=== PATIENT | female | born 1970 | race Caucasian/White ===

== ENCOUNTER 2024-09-26 01:05 | Day surgery (SDC) | payer OTHER, SELFPAY ==
[2024-09-09 13:35] VITALS: BMI 30.4
--- OUTSIDE RECORDS SUMMARY | 2024-09-26 01:08 | XMS_ITS | Clinical Summary ---
Author Organization [facility] [employer] Address [address] [place] [address] Care Team Providers Care Head Setter Name Role Phone Liya Burdick Primary Care Provider [phone] Source Comments [facility],non-owned Affiliates and Associated Physician Practices is amultiple site organization consisting of ambulatory clinics and hospital sitesin [place], [place], [place] and [place]. This disclosure is being madepursuant to the Care Everywhere program and may not contain all information available regarding this patient. Last updated 18.[facility] [employer] Allergies Active Allergy Reactions Criticality Noted Date Comments Meloxicam Other Low 03/14/2017 Elevated liver functions. Medications * Be aware that medications may not be up to date on this document. Alwaysverify current medications with the patient. Medication Sig Dispensed Refills Start Date End Date Status buPROPion SR 12hr (WELLBUTRIN-SR) 150 MG tablet 2 times daily 02/26/2018 Active Docusate Sodium (COLACE PO) Take 2 capsules by mouth 2 times daily Active nebivolol (Bystolic) 2.5 MG tablet Take 2 (two) tablets by mouth once daily Active loratadine (Claritin) 10 MG tablet Take 1 (one) tablet by mouth once daily Active Cyanocobalamin (VITAMIN B 12 PO) Take 1,000 mcg by mouth once daily Active [place]-3 Fatty Acids (OMEGA 3 PO) Take by mouth once daily Active Multiple Vitamins-Minerals (MULTIVITAMIN ADULT PO) Take by mouth once daily Active Calcium Carbonate-Vitamin D (CALCIUM-VITAMIN D) 600-125 MG-UNIT Take by mouth 2 times daily Active TURMERIC PO Take 1,000 mg by mouth 2 times daily Active ALPRAZolam (XANAX) 0.25 MG tablet Take 2 (two) tablets by mouth 3 times daily as needed for Anxiety Active ondansetron (ZOFRAN) 4 MG tablet Take 1 (one) tablet by mouth every 6 hours as needed for Nausea/Vomiting Active traMADol (ULTRAM) 50 MG tablet Take 1 (one) tablet by mouth every 6 hours as needed for Pain Active clonazePAM (KlonoPIN) 0.5 MG tablet Take 1 (one) tablet by mouth 2 times daily Active Melatonin-Pyridoxine (MELATIN PO) Take by mouth nightly as needed Active rosuvastatin (Crestor) 5 MG tablet Take 1 (one) tablet by mouth once daily Active diphenhydrAMINE (Benadryl) 25 MG capsule Take 1 (one) capsule by mouth nightly as needed Active polyethylene glycol 3350 (Miralax) 17 GM/SCOOP powder Take 17 (seventeen) g by mouth 2 times daily Mixes bene fiber Active Active Problems Problem Noted Date Diagnosed Date NAFLD (nonalcoholic fatty liver disease) 019 Overview (08/30/2022): 08/26/21 Fibroscan CAP 281, LSM 5.4 kPa 08/30/22 Fibroscan CAP 320, LSM 7.4 kPa Elevated alkaline phosphatase level 04/05/2018 Resolved Problems Problem Noted Date Diagnosed Date Resolved Date Abnormal levels of other serum enzymes 02/27/2014 04/05/2018 Encounters Date Type Department Care Team Description 07/17/2024 Travel from Last 3 Months Immunizations Name Administration Dates Next Due Covid Moderna primary monova lent 12+ yr 0.5mL 06/29/2021,12/04/2020,11/06/2020 Social History Tobacco Use Types Packs/Day Years Used Date Smoking Tobacco: Never Smokeless Tobacco: Never Tobacco Cessation:Counseling Given: Not Answered Alcohol Use Standard Drinks/Week Comments No 0 (1 standard drink = 0.6 oz pur e alcohol) Sex and Gender Information Value Date Recorded Sex Assigned at Not on file Gender Identity Not on file Sexual Orientation Not on file Last Filed Vital Signs Vital Sign Reading Time Taken Comments Blood Pressure 152/79 08/22/2023 8:55 AM [facility] Pulse 70 08/22/2023 8:55 AM [facility] Temperature 36.5 C (97.7 F) 08/22/2023 8:55 AM [facility] Respiratory Rate 16 08/22/2023 8:55 AM [facility] Oxygen Saturation 100% 08/22/2023 8:55 AM [facility] Inhaled Oxygen Concentration - - Weight 88.2 kg (194 lb 6.4 oz) 08/22/2023 8:55 A M [facility] [employer] [facility] Height 170.2 cm (5' 7 ) 08/22/2023 8:55 AM [facility] Body Mass Index 30.45 08/22/2023 8:55 AM [facility] Plan of Treatment Upcoming Encounters Date Type Department Care Team (Late st Contact Info) Description 11/26/2024 2:00 PM CDT Procedure visit [facility] [address] [place] [phone] 11/26/2024 2:30 PM CDT Office Visit [facility] [address] [place] [phone] Kevin Schuster MD [address] [place] [address] [place] [address] Health Maintenance Due Date Last Done Comments COLOGUARD (AGES 45-75) - COLON CA SCREENING 1968 COLON MONITORING 1968 COLONOSCOPY - COLON CA SCREENING 1968 CT COLONOGRAPHY - COLON CA SCREENING 1968 Colorectal Cancer Screening 1968 FIT - COLON CA SCREENING 1968 FLEX SIG - COLON CA SCREENING 1968 PAP SMEAR 1968 HIV SCREENING 1983 DTAP/TDAP/TD VACCINES (1 - Tdap) 1987 HEPATITIS B VACCINE (1 of 3 - 19+ 3-dose series) 1987 PNEUMOCOCCAL VACCINE 50+ (1 of 1 - PCV) 2018 ZOSTER VACCINE (1 of 2) 2018 COVID-19 VACCINE (4 - season) 2024 06/29/2021, 12/04/2020, 11/06/2020 INFLUENZA VACCINE (#1) 2024 06/29/2021 DEPRESSION SCREENING 08/14/2024 MAMMOGRAM 04/05/2025 04/05/2023 SCREENING FOR DIABETES 08/22/2026 , 08/30/2022, 08/26/2021, Additional history exists HEPATITIS C SCREENING Completed 02/27/2014 HIB VACCINE Aged Out No longer eligi ble based on patient's age to complete this topic HPV VACCINE Aged Out No longer eligi ble based on patient's age to complete this topic MENINGOCOCCAL (Group B) VACCINE Aged Out No longer eligible based on patient's age to complete this topic MENINGOCOCCAL VACCINE Aged Out No alfredo dede eligible based on patient's age to complete this topic Goals Goal Patient Goal Type Associated Problems Recent Progress Patient-Stated? Author Medication Management General On track( 023 10:10 AM [facility] [employer] [facility]) Pao Machado, RN Note: Expected end date: Ongoing Interventions: Take all medications as prescribed Let your doctor know right away about any changes in your medications Make sure to request a refill of your medication at least one week prior to your last dose Procedures Procedure Name Priority Date/Time Associated Diagnosis Comments COMPREHENSIVE METABOLIC PANEL Routine 08/22/2023 8:51 AM [facility] NAFLD (nonalcoholic fatty liver disease) Primary biliary cholangitis (HCC) HEPATITIS C ANTIBODY Timed 02/27/2014 1:14 PM CDT from Last 3 Months or Most Recently Relevant to Health Maintenance Results * COMPREHENSIVE METABOLIC PANEL (08/22/2023 8:51 AM [facility]) BUN 14 7 - 26 mg/dL 08/22/2023 9:42 AM [facility] Creatinine 0.76 0.56 - 0.96 mg/dL 08/22/2023 9:42 AM [facility] Sodium 140 136 - 145 mmol/L 08/22/2023 9:42 AM [facility] Potassium 4.1 3.5 - 4.5 mmol/L 08/22/2023 9:42 AM [facility] Chloride 102 98 - 107 mmol/L 08/22/2023 9:42 AM [facility] CO2 27 22 - 29 mmol/L 08/22/2023 9:42 AM [facility] Glucose 82 70 - 115 mg/dL 08/22/2023 9:42 AM [facility] Calcium 9.7 8.4 - 10.2 mg/dL 08/22/2023 9:42 AM [facility] Protein Total 6.9 6.0 - 8.3 g/dL 08/22/2023 9:42 AM [facility] Albumin 4.2 3.4 - 5.0 g/dL 08/22/2023 9:42 AM [facility] Bilirubin Total 0.8 0.2 - 1.2 mg/dL 08/22/2023 9:42 AM [facility] Alkaline Phosphatase 102 40 - 150 U/L 08/22/2023 9:42 AM [facility] ALT 15 5 - 55 U/L 08/22/2023 9:42 AM [facility] AST 16 5 - 34 U/L 08/22/2023 9:42 AM [facility] Anion Gap 11 6 - 16 08/22/2023 9:42 AM [facility] BUN/Creatinine Ratio 18 7 - 23 08/22/2023 9:42 AM [facility] Osmolality Calculated 290 275 - 295 mOsm/kg 08/22/2023 9:42 AM [facility] Albumin/Globulin Ratio 1.6 1.1 - 2.3 08/22/2023 9:42 AM [facility] eGFR by CKD-EPI >90 >=90 mL/min/1.7 3 m2 08/22/2023 9:42 AM [facility] Blood BLOOD SPECIMEN / Unknown Lab Venipuncture / Unknown 08/22/2023 8:51 AM [facility] 08/22/2023 9:05 AM [facility] Kevin Schuster MD LAB - CHEMISTR Y ORDERABLES [facility] [address] [place] [phone], [facility] [phone] * HEPATITIS C ANTIBODY (02/27/2014 1:14 PM CDT) Hepatitis C Antibody Non-react jin Non-reac tive [facility] Comment: Hepatitis C Antibody screen indicates no serologic evidence of past or current infection with Hepatitis C Virus. Patients with unexplained liver disease who are immunocompromised or suspected of having acute Hepatitis C infection may benefit from Nucleic Acid Test (VIRA) for Hepatitis C Viral RNA to confirm Hepatitis C status. Blood specimen (specimen) BLOOD SPECIMEN / Unknown 02/27/2014 1:14 PM CDT 02/27/2014 2:17 PM CDT Lauri Mcknight MD LAB - CHEMISTRY GARY DENNIS [facility] [address] [place] [address], [facility] [phone] from Last 3 Months or Most Recently Relevant to Health Maintenance Care Teams Head Setter Relationship Specialty Start Date End Date Liya Burdick PA [address] [place] [phone] PCP - General Physician Planning Feeder 08/22/23
--- OUTSIDE RECORDS SUMMARY | 2024-09-26 01:09 | XMS_ITS | Patient Health Summary ---
Author Organization [facility] Address [address] [place] [address] Care Team Providers Care Scoring Machine Operator Name Role Phone Liya Burdick Primary Care Provider [phone] Note from [facility],non-owned Affiliates and Associated Physician Practices is amultiple site organization consisting of ambulatory clinics and hospital sitesin [place], [place], [place] and [place]. This disclosure is being madepursuant to the Care Everywhere program and may not contain all information available regarding this patient. Last updated 18.[facility] Allergies * Meloxicam(Other) -Low Criticality Medications * Be aware that medications may not be up to date on this document. Alwaysverify current medications with the patient. * buPROPion SR 12hr (WELLBUTRIN-SR) 150 MG tablet(Started 02/26/2018) 2 times daily * Docusate Sodium (COLACE PO) Take 2 capsules by mouth 2 times daily * nebivolol (Bystolic) 2.5 MG tablet Take 2 (two) tablets by mouth once daily * loratadine (Claritin) 10 MG tablet Take 1 (one) tablet by mouth once daily * Cyanocobalamin (VITAMIN B 12 PO) Take 1,000 mcg by mouth once daily * Patterson-3 Fatty Acids (OMEGA 3 PO) Take by mouth once daily * Multiple Vitamins-Minerals (MULTIVITAMIN ADULT PO) Take by mouth once daily * Calcium Carbonate-Vitamin D (CALCIUM-VITAMIN D) 600-125 MG-UNIT Take by mouth 2 times daily * TURMERIC PO Take 1,000 mg by mouth 2 times daily * ALPRAZolam (XANAX) 0.25 MG tablet Take 2 (two) tablets by mouth 3 times daily as needed for Anxiety * ondansetron (ZOFRAN) 4 MG tablet Take 1 (one) tablet by mouth every 6 hours as needed for Nausea/Vomiting * traMADol (ULTRAM) 50 MG tablet Take 1 (one) tablet by mouth every 6 hours as needed for Pain * clonazePAM (KlonoPIN) 0.5 MG tablet Take 1 (one) tablet by mouth 2 times daily * Melatonin-Pyridoxine (MELATIN PO) Take by mouth nightly as needed * rosuvastatin (Crestor) 5 MG tablet Take 1 (one) tablet by mouth once daily * diphenhydrAMINE (Benadryl) 25 MG capsule Take 1 (one) capsule by mouth nightly as needed * polyethylene glycol 3350 (Miralax) 17 GM/SCOOP powder Take 17 (seventeen) g by mouth 2 times daily Mixes bene fiber Active Problems Problem Noted Date Diagnosed Date NAFLD (nonalcoholic fatty liver disease) 019 Elevated alkaline phosphatase level 04/05/2018 Resolved Problems Problem Noted Date Diagnosed Date Resolved Date Abnormal levels of other serum enzymes 02/27/2014 04/05/2018 Immunizations * Covid Moderna primary monovalent 12+ yr 0.5mL(Given 06/29/2021, 12/04/2020, 11/06/2020) Social History Tobacco Use Types Packs/Day Years [...] Comments Blood Pressure 152/79 08/22/2023 8:55 AM H[employer]ICULTURE WORKER Pulse 70 08/22/2023 8:55 AM H[employer]ICULTURE WORKER Temperature 36.5 C (97.7 F) 08/22/2023 8:55 AM H[employer]ICULTURE WORKER Respiratory Rate 16 08/22/2023 8:55 AM H[employer]ICULTURE WORKER Oxygen Saturation 100% 08/22/2023 8:55 AM H[employer]ICULTURE WORKER Inhaled Oxygen Concentration - - Weight 88.2 kg (194 lb 6.4 oz) 08/22/2023 8:55 A M [employer]ICULTURE WORKER Height 170.2 cm (5' 7 ) 08/22/2023 8:55 AM H[employer]ICULTURE WORKER Body Mass Index 30.45 08/22/2023 8:55 AM HORTICULTURE WORKER Procedures * COMPREHENSIVE METABOLIC PANEL(Performed 08/22/2023) Performed for NAFLD (nonalcoholic fatty liver disease), Primary biliary cholangitis (HCC) * CBC W AUTO DIFFERENTIAL(Performed 08/22/2023) Performed for NAFLD (nonalcoholic fatty liver disease), Primary biliary cholangitis (HCC) * KY LIVER ELASTOGRAPHY(Performed 08/30/2022) Performed for NAFLD (nonalcoholic fatty liver disease) * COMPREHENSIVE METABOLIC PANEL(Performed 08/30/2022) Performed for NAFLD (nonalcoholic fatty liver disease), Primary biliary cholangitis (HCC) * CBC W AUTO DIFFERENTIAL(Performed 08/30/2022) Performed for NAFLD (nonalcoholic fatty liver disease), Primary biliary cholangitis (HCC) * KY LIVER ELASTOGRAPHY(Performed 08/26/2021) Performed for NAFLD (nonalcoholic fatty liver disease) * PT-INR [facility](Performed 08/26/2021) Performed for NAFLD (nonalcoholic fatty liver disease) * CBC W AUTO DIFFERENTIAL(Performed 08/26/2021) Performed for NAFLD (nonalcoholic fatty liver disease) * COMPREHENSIVE METABOLIC PANEL(Performed 08/26/2021) Performed for NAFLD (nonalcoholic fatty liver disease) * PT-INR [facility](Performed 08/18/2020) Performed for Liver regeneration * COMPREHENSIVE METABOLIC PANEL(Performed 08/18/2020) Performed for Cholestatic liver disease (HCC) * CBC W AUTO DIFFERENTIAL(Performed 08/18/2020) Performed for Cholestatic liver disease (HCC) * CBC W AUTO DIFFERENTIAL(Performed 03/18/2020) * COMPREHENSIVE METABOLIC PANEL(Performed 03/18/2020) * CBC W AUTO DIFFERENTIAL(Performed 08/20/2019) * COMPREHENSIVE METABOLIC PANEL(Performed 08/20/2019) * CBC W AUTO DIFFERENTIAL(Performed 03/19/2019) * COMPREHENSIVE METABOLIC PANEL(Performed 03/19/2019) * TSH (EXTERNAL RESULT ENTRY)(Performed 03/19/2019) * LIPID PROFILE (EXTERAL RESULT ENTRY)(Performed 03/19/2019) * CBC W AUTO DIFFERENTIAL(Performed 09/14/2018) * COMPREHENSIVE METABOLIC PANEL(Performed 09/14/2018) * CBC W AUTO DIFFERENTIAL(Performed 03/26/2018) * COMPREHENSIVE METABOLIC PANEL(Performed 03/26/2018) * CBC W AUTO DIFFERENTIAL(Performed 08/02/2017) * COMPREHENSIVE METABOLIC PANEL(Performed 08/02/2017) * COMPREHENSIVE METABOLIC PANEL(Performed 01/17/2017) * CBC W AUTO DIFFERENTIAL(Performed 01/17/2017) * COMPREHENSIVE METABOLIC PANEL(Performed 08/12/2016) * CBC W AUTO DIFFERENTIAL(Performed 08/12/2016) * COMPREHENSIVE METABOLIC PANEL(Performed 02/19/2016) * CBC W AUTO DIFFERENTIAL(Performed 02/19/2016) * CBC W AUTO DIFFERENTIAL(Performed 07/20/2015) * COMPREHENSIVE METABOLIC PANEL(Performed 07/20/2015) * PATHOLOGY TISSUE(Performed 05/06/2014) * MRI ABDOMEN W MRCP WWO CONT W3D(Performed 03/07/2014) * CREATININE BLOOD - POCT (IP) [facility](Performed 03/07/2014) * NEUTROPHIL CYTOPLASMIC ANTIBODY(Performed 02/27/2014) * SMOOTH MUSCLE ANTIBODY(Performed 02/27/2014) * RUPERT W/REFLEX IFA PATTERN(Performed 02/27/2014) * IGG SUBCLASS 4(Performed 02/27/2014) * HEPATITIS A ANTIBODY(Performed 02/27/2014) * HEPATITIS B SURFACE ANTIBODY(Performed 02/27/2014) * HEPATITIS B CORE ANTIBODY TOTAL(Performed 02/27/2014) * PT-INR [facility](Performed 02/27/2014) * COMPREHENSIVE METABOLIC PANEL(Performed 02/27/2014) * GGT(Performed 02/27/2014) * CBC W AUTO DIFFERENTIAL(Performed 02/27/2014) * CBC W AUTO DIFFERENTIAL(Performed 02/27/2014) * [id number] BLOOD PHENOTYPING PANEL(Performed 02/27/2014) * MICROSOMAL ANTIBODY LIVER/KIDNEY(Performed 02/27/2014) * MITOCHONDRIAL ANTIBODY SCREEN(Performed 02/27/2014) * SMOOTH MUSCLE ANTIBODY(Performed 02/27/2014) * FERRITIN(Performed 02/27/2014) * HEPATITIS C ANTIBODY(Performed 02/27/2014) * HEPATITIS B SURFACE ANTIGEN W RFLX CONFIRMATION(Performed 02/27/2014) * CERULOPLASMIN(Performed 02/27/2014) * [id number]-[id number] BLOOD(Performed 02/27/2014) Results * (ABNORMAL) CBC WITH DIFFERENTIAL (08/22/2023 8:51 AM [facility]) Only the most recent of16 resultswithin the time period is included. WBC 5.2 4.0 - 10.7 x10E9/L 08/22/2023 9:23 AM [facility] RBC Count 3.77(L) 3.90 - 5.20 x10E12/L 08/22/2023 9:23 AM [facility] Hemoglobin 12.4 11.9 - 15.8 g/dL 08/22/2023 9:23 AM [facility] Hematocrit 35.9 34.8 - 46.1 % 08/22/2023 9:23 AM [facility] MCV 95.2 80.0 - 98.0 fL 08/22/2023 9:23 AM [facility] MCH 32.9 26.7 - 33.6 pg 08/22/2023 9:23 AM [facility] MCHC 34.5 31.7 - 36.3 g/dL 08/22/2023 9:23 AM [facility] RDW-CV 11.8 11.3 - 14.8 % 08/22/2023 9:23 AM [facility] Platelet Count 319 150 - 420 x10E9/L 08/22/2023 9:23 AM [facility] MPV 8.9 7.8 - 11.4 fL 08/22/2023 9:23 AM [facility] Neutrophil % 46.7 41.0 - 74.0 % 08/22/2023 9:23 AM [facility] Lymphocyte % 40.7 17.0 - 47.0 % 08/22/2023 9:23 AM [facility] Monocyte % 9.3 3.0 - 11.0 % 08/22/2023 9:23 AM [facility] Eosinophil % 2.3 0.0 - 7.0 % 08/22/2023 9:23 AM [facility] Basophil % 0.8 0.0 - 1.6 % 08/22/2023 9:23 AM [facility] Immature Granulocytes % 0.2 0.0 - 1.0 % 08/22/2023 9:23 AM [facility] Neutrophil Absolute 2.42 1.60 - 7.50 x10E9/L 08/22/2023 9:23 AM [facility] Lymphocyte Absolute 2.11 1.00 - 4.40 x10E9/L 08/22/2023 9:23 AM [facility] Monocyte Absolute 0.48 0.15 - 1.00 x10E9/L 08/22/2023 9:23 AM [facility] Eosinophil Absolute 0.12 0.00 - 0.60 x10E9/L 08/22/2023 9:23 AM [facility] Basophil Absolute 0.04 0.00 - 0.13 x10E9/L 08/22/2023 9:23 AM [facility] Blood BLOOD SPECIMEN / Unknown Lab Venipuncture / Unknown 08/22/2023 8:51 AM [facility] 08/22/2023 9:05 AM [facility] Kevin Schuster MD LAB - HEMATOLO GY ORDERABLES Performing Organization Address City/State/[facility] Co de Phone Number [address] [address], [facility] [phone] * COMPREHENSIVE METABOLIC PANEL (08/22/2023 8:51 AM [facility]) Only the most recent of15 resultswithin the time period is included. BUN 14 7 - 26 mg/dL 08/22/2023 9:42 AM [facility] Creatinine 0.76 0.56 - 0.96 mg/dL 08/22/2023 9:42 AM [facility] Sodium 140 136 - 145 mmol/L 08/22/2023 9:42 AM [facility] Potassium 4.1 3.5 - 4.5 mmol/L 08/22/2023 9:42 AM [facility] Chloride 102 98 - 107 mmol/L 08/22/2023 9:42 AM [facility] CO2 27 22 - 29 mmol/L 08/22/2023 9:42 AM [facility] Glucose 82 70 - 115 mg/dL 08/22/2023 9:42 AM [facility] Calcium 9.7 8.4 - 10.2 mg/dL 08/22/2023 9:42 AM [facility] Protein Total 6.9 6.0 - 8.3 g/dL 08/22/2023 9:42 AM [facility] Albumin 4.2 3.4 - 5.0 g/dL 08/22/2023 9:42 AM [facility] Bilirubin Total 0.8 0.2 - 1.2 mg/dL 08/22/2023 9:42 AM [facility] Alkaline Phosphatase 102 40 - 150 U/L 08/22/2023 9:42 AM [facility] ALT 15 5 - 55 U/L 08/22/2023 9:42 AM [facility] AST 16 5 - 34 U/L 08/22/2023 9:42 AM [facility] Anion Gap 11 6 - 16 08/22/2023 9:42 AM [facility] BUN/Creatinine Ratio 18 7 - 23 08/22/2023 9:42 AM [facility] Osmolality Calculated 290 275 - 295 mOsm/kg 08/22/2023 9:42 AM [facility] Albumin/Globulin Ratio 1.6 1.1 - 2.3 08/22/2023 9:42 AM [facility] eGFR by CKD-EPI >90 >=90 mL/min/1.7 3 m2 08/22/2023 9:42 AM [facility] Blood BLOOD SPECIMEN / Unknown Lab Venipuncture / Unknown 08/22/2023 8:51 AM [facility] 08/22/2023 9:05 AM [facility] Kevin Schuster MD LAB - CHEMISTR Y ORDERABLES [facility] [address] [place] [id number] [phone] * [place] LIVER ELASTOGRAPHY (08/30/2022 9:00 AM H[employer]ICULTURE WORKER) Narrative Keyshawn White MD - 08/30/2022 9:00 AM H[employer]ICULTURE WORKER Keyshawn White MD 08/30/2022 11:38 AM Diagnosis: NAFLD (nonalcoholic fatty liver disease) RN verified patient not , no implanted devices and NPO for prior 3 hours. Date of Exam: 08/30/2022 Liver Stiffness: (LSM, kPa) median: 7.4 IQR (interquartile range): 1.1 IQR/Median% (ideally < 30%): 15% CAP (controlled attenuation parameter): 320 Technical Difficulty: None Ordering Provider: Dr. Schuster Phone Fax Fibroscan interpretation: I have personally reviewed the Fibroscan report and associated tracings. The calculated Liver Stiffness Measurement (LSM, kPa) indicates that: The probability of advanced liver fibrosis is: low to moderate. The loss of ultrasound signal, (controlled attenuation parameter, CAP [dB/m]), indicates that the probability of hepatic steatosis is: high. Keyshawn White MD The following criteria are used to indicate the probability of advanced (stage 3-4) fibrosis: < 7.0 kPa: low 7.0-8.9 kPa: low to moderate 9.0-14.9 kPa: moderate 15-20 kPa: high > 20 kPa: very high Liver stiffness > 20 kPa is also associated with a high probability of complications of portal hypertension including varices and ascites. Liver stiffness > 50 kPa is associated with a high risk of variceal bleeding. These interpretations are based on the following published data: Helga PJ, Francisca M, Dalia M, et al. Accuracy of FibroScan controlled attenuation parameter and liver stiffness measurement in assessing steatosis and fibrosis in patients with nonalcoholic fatty liver disease. Gastroenterology 2019;156:9299-6969. Nisreen MS, Tanvir R, Van Ria ML, et al. Vibration-controlled transient elastography to assess fibrosis and steatosis in patients with nonalcoholic fatty liver disease. Clin Gastroenterol Hepatol 2019;17:156-163. Note: 1. Fibroscan cannot reliably identify earlier stages of fibrosis (ie distinguish F0 from F1 and F2) and thus a histologic stage cannot be predicted from the Fibroscan reading. 2. Assessing the likelihood of advanced fibrosis in patients with indeterminate liver stiffness measurement (LSM) by Fibroscan (e.g., 8-15 kPa) can be improved by also calculating the FIB4 score (Rupali et al. Hepatology Communications 2019;3:1729-4329) or NAFLD Fibrosis score (Zarate et al. Clinical Gastroenterology and Hepatology 2019;17:1070-3973. from routine clinical data. 3. Liver stiffness can be increased by factors other than fibrosis including passive congestion, infiltrative processes, active alcoholism, biliary obstruction and marked inflammation. The interpretation of the Fibroscan result provided above may not have taken such clinical factors into account. Disease etiology also influences Fibroscan cutoff values for fibrosis stages and the following cutoffs have been proposed (Andrew et al, Clin Gastro Hepatol 2015; 13:27-36): Cutoffs for Stage 3 and Stage 4 fibrosis respectively: Hepatitis B: >9 and >11.7 kPa Hepatitis C: >9.5 and >12.5 kPa HCV-HIV: >11 and >14 kPa Cholestatic liver diseases: >10 and >17.9 kPa NAFLD/ALLEN: >10 and >14 kPa CAP estimates of steatosis: normal <200 dB/m mild 200 to 250 dB/m moderate 250-290 dB/m substantial > 290 dB/m (Note that Fibroscan is not a quantitative measure of liver fat.) These criteria are estimates and may change as additional supporting data becomes available. [email or web address] Kevin Schuster MD PROCEDURE/LISA R SURGICAL ORDERABLES * [place] LIVER ELASTOGRAPHY (08/26/2021 9:44 AM H[employer]ICULTURE WORKER) Narrative Keyshawn White MD - 08/26/2021 9:44 AM H[employer]ICULTURE WORKER Keyshawn White MD 08/26/2021 3:37 PM Diagnosis: NAFLD RN verified patient not , no implanted devices and NPO for prior 3 hours. Procedure explained and consent signed. Date of Exam: 08/26/2021 Liver Stiffness: (LSM, kPa) median: 5.4 IQR (interquartile range): 1.3 IQR/Median% (ideally < 30%): 24 CAP (controlled attenuation parameter): 281 Technical Difficulty: None Ordering Provider: Kevin Schuster MD Phone Fax Fibroscan interpretation: I have personally reviewed the Fibroscan report and associated tracings. The calculated Liver Stiffness Measurement (LSM, kPa) indicates that: The probability of advanced liver fibrosis is: low. The loss of ultrasound signal, (controlled attenuation parameter, CAP [dB/m]), indicates that the probability of hepatic steatosis is: moderate. Keyshawn White MD The following criteria are used to indicate the probability of advanced (stage 3-4) fibrosis: < 7.0 kPa: low 7.0-8.9 kPa: low to moderate 9.0-14.9 kPa: moderate 15-20 kPa: high > 20 kPa: very high Liver stiffness > 20 kPa is also associated with a high probability of complications of portal hypertension including varices and ascites. Liver stiffness > 50 kPa is associated with a high risk of variceal bleeding. These interpretations are based on the following published data: Helga PJ, Francisca M, Dalia M, et al. Accuracy of FibroScan controlled attenuation parameter and liver stiffness measurement in assessing steatosis and fibrosis in patients with nonalcoholic fatty liver disease. Gastroenterology 2019;156:2048-0605. Nisreen MS, Tanvir R, Van Natta ML, et al. Vibration-controlled transient elastography to assess fibrosis and steatosis in patients with nonalcoholic fatty liver disease. Clin Gastroenterol Hepatol 2019;17:156-163. Note: 1. Fibroscan cannot reliably identify earlier stages of fibrosis (ie distinguish F0 from F1 and F2) and thus a histologic stage cannot be predicted from the Fibroscan reading. 2. Assessing the likelihood of advanced fibrosis in patients with indeterminate liver stiffness measurement (LSM) by Fibroscan (e.g., 8-15 kPa) can be improved by also calculating the FIB4 score (Smithuke et al. Hepatology Communications 2019;3:2573-0511) or NAFLD Fibrosis score (Zarate et al. Clinical Gastroenterology and Hepatology 2019;17:0162-2681. from routine clinical data. 3. Liver stiffness can be increased by factors other than fibrosis including passive congestion, infiltrative processes, active alcoholism, biliary obstruction and marked inflammation. The interpretation of the Fibroscan result provided above may not have taken such clinical factors into account. Disease etiology also influences Fibroscan cutoff values for fibrosis stages and the following cutoffs have been proposed (Adnrew et al, Clin Gastro Hepatol 2015; 13:27-36): Cutoffs for Stage 3 and Stage 4 fibrosis respectively: Hepatitis B: >9 and >11.7 kPa Hepatitis C: >9.5 and >12.5 kPa HCV-HIV: >11 and >14 kPa Cholestatic liver diseases: >10 and >17.9 kPa NAFLD/ALLEN: >10 and >14 kPa CAP estimates of steatosis: normal <200 dB/m mild 200 to 250 dB/m moderate 250-290 dB/m substantial > 290 dB/m (Note that Fibroscan is not a quantitative measure of liver fat.) These criteria are estimates and may change as additional supporting data becomes available. [email or web address] Kevin Schuster MD PROCEDURE/LISA R SURGICAL ORDERABLES * PT-INR [facility] (08/26/2021 9:13 AM HORTICULTURE WORKER) Only the most recent of3 resultswithin the time period is included. PT 12.5 12.1 - 14.8 Seconds 08/26/2021 9:48 AM HORTICULTURE WORKER [facility] INR 1.0 See Comment 08/26/2021 9:48 AM HORTICULTURE WORKER [facility] Comment:The suggested therap eutic range for standard coumadin (warfarin) therapy is an INR of 2.0-3.0. For high-risk patients (Mechanical Mitral Valve Prosthesis, etc.), the suggested prophylactic therapeutic range is an INR of 2.5-3.5. Blood BLOOD SPECIMEN / Unknown Lab Venipuncture / Unknown 08/26/2021 9:13 AM H[employer]ICULTURE WORKER 08/26/2021 9:32 AM H[employer]ICULTURE WORKER Kevin Schuster MD LAB - COAGULAT ION ORDERABLES [facility] [address] [place] [address], [facility] [phone] * (ABNORMAL) LIPID PROFILE (EXTERAL RESULT ENTRY) (03/19/2019) Cholesterol (EXTERNAL RESULT) 175 0 - 200 mg/dL Triglycerides (EXTERNAL RESULT) 85 0 - 150 mg/dL HDL (EXTERNAL RESULT) 56 >50 mg/dL LDL (EXTERNAL RESULT) 101(A) 0 - 100 mg/dL VLDL (EXTERNAL RESULT) Chol HDL Ratio (External Result) 3.1 0.0 - 5.0 Blood BLOOD SPECIMEN / Unknown 03/19/2019 Historical Provider LAB - CHEMISTRY O RDERABLES * TSH (EXTERNAL RESULT ENTRY) (03/19/2019) Pathologist [facility] TSH (EXTERNAL RESULT) 1.46 0.40 - 4.50 uIU/mL Blood BLOOD SPECIMEN / Unknown 03/19/2019 Historical Provider LAB - CHEMISTRY O RDMADALYN * PATHOLOGY TISSUE (05/06/2014 7:20 AM CDT) Pathologist [facility] Surgical Pathology Tissue CLINICAL HISTORY: The patient is a 43 year old female with elevated liver enzymes. Per Epic, LFT (03/26/14): AP 262, ALT 127, AST 125, normal Tbili. Normal MRCP. FINAL DIAGNOSIS: LIVER, BIOPSY: - MILD STEATOSIS WITH MINIMAL LOBULAR INFLAMMATION - FIBROSIS: STAGE 1 COMMENT: Increased alkaline phosphatase and normal MRCP are noted. There is no significant ductopenia, injury or cholestasis identified in this biopsy. No significant hepatitis or cholangitis is identified. An interlobular portal tract showing periductal fibrosis could be seen in early biliary process, obstruction, or non-specific conditions. Correlation with clinical information and imaging findings is recommended. GROSS DESCRIPTION: The specimen is received in formalin, labeled Citlaly Crenshaw and liver biopsy . It consists of a 0.1 cm in external diameter cylindrical portion of pale brown soft tissue which is 1.5 cm in length. The specimen is strained into a mesh bag, stained with hematoxylin, and submitted in toto in cassette A1. EW for JL/ls MICROSCOPIC DESCRIPTION: Size of biopsy: Adequate Number of portal tracts: >10 Fragmentation: No Fibrosis: Stage 1 with focal portal and periportal fibrosis (Trichrome A1, Reticulin A1) Fibrous septa: Not identified Septa with curved contours: Not identified Large droplet steatosis (% of hepatocytes): 6 Ballooning of hepatocytes: Not identified Cassandra bodies: Not identified Portal inflammation: Not identified Interface activity: Not identified Lobular necroinflammation: Minimal, 1 focus/20x field, very focal Ducts: Present in normal number, one interlobular portal tract showing periductal fibrosis Duct injury: Not identified Ductular reaction: Present, minimal Cholestasis: Not identified Iron stain: Negative (Iron stain A1) Ground glass cells with routine stains: Not identified PASD for [id number] droplets: Not identified (PASD stain A1) JL The performance characteristics of all immunohistochemical and indirect immunofluorescence stains (if any) cited in this report were determined by the Histopathology Laboratory of [facility]. Some of these tests were developed by our own laboratory and have not been cleared or approved by the US Food and Drug Administration. The FDA does not require this test to go through premarket FDA review. These tests are used for clinical purposes. They should not be regarded as investigational or for research. This laboratory is certified under the Clinical Laboratory Improvement Amendments (CLIA) as qualified to perform high complexity clinical laboratory testing. This case has been personally reviewed and interpreted by the attending (teaching) pathologist. Final Diagnosis performed by Matthew Fermin MD. Electronically signed 05/08/2014 [facility] ([facility] Other (qualifier value) 05/06/2014 7:20 AM CDT 05/06/2014 9:55 AM CDT Narrative [facility] [place] - 05/08/2014 10:58 AM CDT PROBLEM LIST: Patient Active Problem List: Elevated liver enzymes PRE-OP DIAGNOSIS: elevated lft OPERATIVE PROCEDURE / FINDINGS: Procedure(s): LIVER BIOPSY POST-OP DIAGNOSIS: * No post-op diagnosis entered * Collection Date->05/06/14 Collection Time-> 7:15 AM Specimen A->Liver cholestatic liver enzymes, intermittant Lauri Mcknight MD LAB - PATHOLOGY/CYTO LOGY ORDERABLES [facility] ([facility] * MRI ABDOMEN W MRCP WWO CONT W3D (03/07/2014 12:19 PM CDT) Anatomical Region Laterality Modality Other Impressions 03/07/2014 2:49 PM CDT Impression: 1. Normal biliary tree. 2. Mild diffuse hepatic steatosis. 3. Complex right renal cyst. Dictated by Freddy Sahu MD. (Resident) Dr. Audrey Mae M.D. have personally reviewed and interpreted this examination/study. This report was electronically signed by Audrey BRADY M.D. on 03/07/2014 2:49 PM . Narrative 03/07/2014 2:49 PM CDT Exam: MRI abdomen with and without contrast History: Cholestatic liver enzymes, evaluate for primary sclerosing cholangitis. Comparison: None Technique: MRI of the abdomen was performed prior to and after administration of 20 mL Multihance according to standard protocol. This included dynamic imaging for MRCP. Image data was analyzed on a dedicated 3D workstation for the MRCP portion of the exam. Findings: The lung bases are clear. There is mild diffuse hepatic steatosis. No focal arterially enhancing liver lesion is identified. The portal vein and its major branches are patent. Conventional hepatic arterial anatomy is present. The spleen and adrenal glands are normal. A small splenule is present. Multiple bilateral renal cysts are seen. The largest in the right kidney measures 14 mm. The largest in the left kidney measures 11 mm. A 13 mm cyst in the right mid kidney has some components that are hyperintense on T1 Weighted images and may represent hemorrhage. The kidneys are otherwise normal. There is colonic diverticulosis without evidence of diverticulitis. No free intraperitoneal fluid is visible. Nonspecific meliton hepatis, portacaval, and retroperitoneal lymph nodes measuring up to 7 mm in short axis are noted. The abdominal aorta is normal in course and caliber. MRCP: There is no gallbladder wall thickening, pericholecystic fluid, or cholelithiasis. There is no intrahepatic or extrahepatic biliary ductal dilatation. The common bile duct is nondilated measuring 4 mm in diameter. No biliary stricture is identified. The pancreas has normal signal intensity without evidence of peripancreatic fluid. The pancreatic duct is not dilated. Procedure Note Petrona Brady MD - 11/11/2017 Exam: MRI abdomen with and without contrast History: Cholestatic liver enzymes, evaluate for primary sclerosingcholangitis. Comparison: None Technique: MRI of the abdomen was performed prior to and afteradministration of 20 mL Multihance according to standard protocol. Thisincluded dynamic imaging for MRCP. Image data was analyzed on a [id number] workstation for the MRCP portion of the exam. Findings: The lung bases are clear. There is mild diffuse hepatic steatosis. No focal arterially enhancingliver lesion is identified. The portal vein and its major branches arepatent. Conventional hepatic arterial anatomy is present. The spleen and adrenal glands are normal. A small splenule is present.Multiple bilateral renal cysts are seen. The largest in the right kidneymeasures 14 mm. The largest in the left kidney measures 11 mm. A 13 mmcyst in the right mid kidney has some components that are hyperintense on T1 Weighted images and may representhemorrhage. The kidneys are otherwise normal. There is colonic diverticulosis without evidence of diverticulitis. Nofree intraperitoneal fluid is visible. Nonspecific meliton hepatis,portacaval, and retroperitoneal lymph nodes measuring up to 7 mm in shortaxis are noted. The abdominal aorta is normal in course and caliber. MRCP: There is no gallbladder wall thickening, pericholecystic fluid, orcholelithiasis. There is no intrahepatic or extrahepatic biliary ductaldilatation. The common bile duct is nondilated measuring 4 mm in diameter.No biliary stricture is identified. The pancreas has normal signal intensity without evidence of peripancreaticfluid. The pancreatic duct is not dilated. IMPRESSION Impression: 1. Normal biliary tree. 2. Mild diffuse hepatic steatosis. 3. Complex right renal cyst. Dictated by Freddy Sahu MD. (Resident) IDr. Audrey M.D. have personally reviewed and interpreted thisexamination/study. This report was electronically signed by Audrey BRADY M.D. on03/07/2014 2:49 PM . Lauri Mcknight MD MR ORDERABLES * (ABNORMAL) CREATININE BLOOD - POCT (IP) [facility] (03/07/2014) Creatinine POCT 1.03 0.3 - 1.3 mg/dL [facility] eGFR POCT 6(A) 60 ml/min [facility] 03/07/2014 Lauri Mcknight MD LAB - POINT OF CARE ORDERABLES [facility] * RUPERT W/REFLEX IFA PATTERN (02/27/2014 1:16 PM CDT) RUPERT None Detected None Detected [facility] Blood specimen (specimen) BLOOD SPECIMEN / Unknown 02/27/2014 1:16 PM CDT 02/27/2014 2:17 PM CDT Lauri Mcknight MD LAB - SEROLOGY ORDER JUS Performing Organization Address City/[facility] Co de Phone Number [address] [phone] * NEUTROPHIL CYTOPLASMIC ANTIBODY (02/27/2014 1:16 PM CDT) Cytoplasmic (C-ANCA) <1:20 Neg:<1:20 titer [facility] (BEAKER) p-ANCA <1:20 Neg:<1:20 titer [facility] (BEAKER) Comment: The presence of positive fluorescence exhibiting P-ANCA or C-ANCA patterns alone is not specific for the diagnosis of Malachi's Granulomatosis (WG) or microscopic polyangiitis. Decisions about treatment should not be based solely on ANCA IFA results. The International ANCA Group Consensus recommends follow up testing of positive sera with both KY-3 and MPO-ANCA enzyme immunoassays. As many as 5% serum samples are positive only by EIA. Ref. AM J Clin Pathol 1999;111:507-513. Atypical p-ANCA <1:20 Neg:<1:20 titer [facility] (BEAKER) Comment: The atypical pANCA pattern has been observed in a significant percentage of patients with ulcerative colitis, primary sclerosing cholangitis and autoimmune hepatitis. Blood specimen (specimen) BLOOD SPECIMEN / Unknown 02/27/2014 1:16 PM CDT 02/27/2014 2:17 PM CDT Narrative [facility] (BEAKER) - 02/28/2014 5:12 PM CDT Performed at: [address] [id number] Exterminator: Dave Corral MD, Phone: [phone] Lauri Mcknight MD LAB - CHEMISTRY GARY DENNIS [facility] ([facility] * SMOOTH MUSCLE ANTIBODY (02/27/2014 1:16 PM CDT) Only the most recent of2 resultswithin the time period is included. [facility] F-Actin Antibody IgG 7.3 0.0 - 19.9 Units [facility] Comment: F-Actin Antibody Numeric Result Interpretation: <20.0 Units: Negative 20.0 - 30.0 Units: Weak Positive >30.0 Units: Moderate to Strong Positive Blood specimen (specimen) BLOOD SPECIMEN / Unknown 02/27/2014 1:16 PM CDT 02/27/2014 2:17 PM CDT Lauri Mcknight MD LAB - SEROLOGY ORDER JUS Performing Organization Address [facility]/ZIP Co de Phone Number [address] [phone] * IGG SUBCLASS 4 (02/27/2014 1:15 PM CDT) [facility] IgG Subclass 4 13 1 - 291 mg/dL [facility] ([facility] Blood specimen (specimen) BLOOD SPECIMEN / Unknown 02/27/2014 1:15 PM CDT 02/27/2014 2:17 PM CDT Narrative [facility] (BEAKER) - 03/03/2014 6:07 AM CDT Performed at: [address] [id number] Exterminator: Matthew Smith MD, Phone: [phone] Lauri Mcknight MD LAB - CHEMISTRY GARY DENNIS [facility] ([facility] * (ABNORMAL) HEPATITIS B SURFACE ANTIBODY (02/27/2014 1:15 PM CDT) Hepatitis B Virus Surface Antibody Reactive( A) Non-react jin [facility] Comment: > 12 mIU/mL Hepatitis B surface Antibody (HBsAb). Reactive for HBsAb - individual is considered immune to Hepatitis B Virus infection. Hepatitis B Surface Antibody Quantitative 12.2(H) <8.0 mIU/mL [facility] Comment: Hepatitis B Surface Antibody Numeric Result Interpretation: Nonreactive: <8.0 mIU/mL Indeterminate: 8.0 - 12.0 mIU/mL Reactive: >12.0 mIU/mL Blood specimen (specimen) BLOOD SPECIMEN / Unknown 02/27/2014 1:15 PM CDT 02/27/2014 2:17 PM CDT Lauri Mcknight MD LAB - CHEMISTRY GARY DENNIS Performing Organization Address [facility] Co de Phone Number [address] [phone] * HEPATITIS B CORE ANTIBODY (02/27/2014 1:15 PM CDT) HBc Antibody Total Non-reacti ve Non-reacti ve [facility] Blood specimen (specimen) BLOOD SPECIMEN / Unknown 02/27/2014 1:15 PM CDT 02/27/2014 2:17 PM CDT Lauri Mcknight MD LAB - CHEMISTRY GARY DENNIS Performing Organization Address [facility] Co de Phone Number [address] [phone] * (ABNORMAL) GGT (02/27/2014 1:15 PM CDT) GGT 161(H) 9 - 64 Units/L [facility] Blood specimen (specimen) BLOOD SPECIMEN / Unknown 02/27/2014 1:15 PM CDT 02/27/2014 2:17 PM CDT Lauri Mcknight MD LAB - CHEMISTRY GARY DENNIS Performing Organization Address [facility]/ZIP Co de Phone Number [place] [id number], [place] [phone] * (ABNORMAL) HEPATITIS A ANTIBODY (02/27/2014 1:15 PM CDT) [facility] Hepatitis A Virus Antibody Total Positive(A ) Negative [facility] ([facility] Blood specimen (specimen) 02/27/2014 1:15 PM CDT 02/27/2014 2:16 PM CDT Narrative [facility]) - 02/28/2014 6:24 AM CDT Performed at: - [address] [id number] Exterminator: Dave Corral MD, Phone: [phone] Lauri Mcknight MD LAB - CHEMISTRY GARY DENNIS Performing Organization Address City/[facility]/ZIP Co de Phone Number [facility]) * MITOCHONDRIAL ANTIBODY SCREEN (02/27/2014 1:14 PM CDT) [facility] Mitochondrial M2 Antibody 2.6 0.0 - 20.0 Units [facility] Comment: Mitochondrial M2 Antibody Numeric Result Interpretation: <20.1 Units: Negative 20.1 - 24.9 Units: Equivocal >24.9 Units: Positive Blood specimen (specimen) BLOOD SPECIMEN / Unknown 02/27/2014 1:14 PM CDT 02/27/2014 2:16 PM CDT Lauri Mcknight MD LAB - CHEMISTRY GARY DENNIS Performing Organization Address City/[facility]/ZIP Co de Phone Number [address] [phone] * [id number]-[id number] BLOOD PHENOTYPING PANEL (02/27/2014 1:14 PM CDT) [facility] Unjkf-4-Dxsppierad n 98 90 - 200 mg/dL [facility] ([facility] Phenotype (PI) MS [facility] ([facility] Comment: Phenotype Population A-1-AT Concentration* Incidence % % of MM Ref. Range Mean MM 86.5% 100% (90-200) 145 MS 8.0% 81% (73-162) 118 MZ 3.9% 60% (54-120) 87 FM 0.4% 97% (87-194) 141 SZ 0.3% 39% (35- 78) 57 SS 0.1% 71% (64-142) 103 ZZ 0.05% 7% ( 6- 14) 10 FS 0.05% 66% (59-132) 96 FZ Unknown Unknown FF Unknown Unknown *A-1-AT concentration in the homozygous MM phenotype is taken as the reference normal. Deficiency in phenotypes is reported relative to this reference. Blood specimen (specimen) BLOOD SPECIMEN / Unknown 02/27/2014 1:14 PM CDT 02/27/2014 2:16 PM CDT Narrative [facility] [employer]) - 03/03/2014 5:11 PM CDT Performed at: [address] [place] [id number] Exterminator: Dave Corral MD, Phone: [phone] Performed at: [address] [place] [id number] Exterminator: Matthew Smith MD, Phone: [phone] Lauri Mcknight MD LAB - CHEMISTRY GARY DENNIS [facility] [employer] [facility] * MICROSOMAL ANTIBODY LIVER/KIDNEY (02/27/2014 1:14 PM CDT) Liver-Kidney Microsomal Antibody 1.0 0.0 - 20.0 Units [facility] [employer]) Comment: Negative 0.0 - 20.0 Equivocal 20.1 - 24.9 Positive >24.9 LKM type 1 antibodies are detected in patients with autoimmune hepatitis type 2 and in up to 8% of patients with chronic HCV infection. Blood specimen (specimen) BLOOD SPECIMEN / Unknown 02/27/2014 1:14 PM CDT 02/27/2014 2:17 PM CDT Narrative [facility] [employer]) - 02/28/2014 3:18 PM CDT Performed at: [address] [place] [id number] Exterminator: Dave Corral MD, Phone: [phone] Lauri Mcknight MD LAB - CHEMISTRY GARY DENNIS [facility] (BEAKER) * CERULOPLASMIN (02/27/2014 1:14 PM CDT) Ceruloplasmin 26 20 - 60 mg/dL [facility] Blood specimen (specimen) BLOOD SPECIMEN / Unknown 02/27/2014 1:14 PM CDT 02/27/2014 2:17 PM CDT Lauri Mcknight MD LAB - CHEMISTRY GARY DENNIS Performing Organization Address [facility] Co de Phone Number [address] [phone] * [id number] BLOOD (02/27/2014 1:14 PM CDT) Smnbn-9-Oznyic ypsin 104 90 - 200 mg/dL [facility] Blood specimen (specimen) BLOOD SPECIMEN / Unknown 02/27/2014 1:14 PM CDT 02/27/2014 2:17 PM CDT Lauri Mcknight MD LAB - CHEMISTRY GARY DENNIS Performing Organization Address [facility] Co de Phone Number [address] [phone] * HEPATITIS B SURFACE ANTIGEN W RFLX CONFIRMATION (02/27/2014 1:14 PM CDT) Hepatitis B Virus Surface Antigen Non-reacti ve Non-reacti ve [facility] Blood specimen (specimen) BLOOD SPECIMEN / Unknown 02/27/2014 1:14 PM CDT 02/27/2014 2:17 PM CDT Lauri Mcknight MD LAB - CHEMISTRY GARY DENNIS Performing Organization Address [facility]/ZIP Co de Phone Number [address] [place] [phone] * HEPATITIS C ANTIBODY (02/27/2014 1:14 PM CDT) Pathologist [facility] Hepatitis C Antibody Non-react jin Non-reac tive [facility] Comment: Hepatitis C Antibody screen indicates [...] Mcknight MD LAB - CHEMISTRY GARY DENNIS [address] [phone] * FERRITIN (02/27/2014 1:14 PM CDT) Pathologist [facility] Ferritin 81 13 - 204 ng/mL [facility] Blood specimen (specimen) BLOOD SPECIMEN / Unknown 02/27/2014 1:14 PM CDT 02/27/2014 2:17 PM CDT Lauri Mcknight MD LAB - CHEMISTRY GARY DENNIS [address] [phone] Care Teams Scoring Machine Operator Relationship Specialty Start Date End Date Liya Burdick PA [address] [place] [id number] PCP - General Physician Fire Production Operator 08/22/23
--- OUTSIDE RECORDS SUMMARY | 2024-09-26 01:09 | XMS_ITS | Referral Summary ---
Author Organization [facility] Address [address] [place] [address] Care Team Providers Care Health And Safety Representative Name Role Phone Liya Burdick Primary Care Provider Source Comments [facility],non-owned Affiliates and Associated Physician Practices is amultiple site organization consisting of ambulatory clinics and hospital sitesin [place], [place], [place] and [place]. This disclosure is being madepursuant to the Care Everywhere program and may not contain all information available regarding this patient. Last updated 18.[facility] Encounters Date Type Department Care Team Description 07/17/2024 Travel from Last 3 Months Allergies Active Allergy Reactions Criticality Noted Date [...] 1,000 mcg by mouth once daily Active [place]-3 Fatty Acids (OMEGA 3 PO) Take by [...] of other serum enzymes 02/27/2014 04/05/2018 Immunizations Name Administration Dates Next Due Covid [...] Comments Blood Pressure 152/79 08/22/2023 8:55 AM SEISMIC ENGINEER Pulse 70 08/22/2023 8:55 AM SEISMIC ENGINEER Temperature 36.5 C (97.7 F) 08/22/2023 8:55 AM SEISMIC ENGINEER Respiratory Rate 16 08/22/2023 8:55 AM SEISMIC ENGINEER Oxygen Saturation 100% 08/22/2023 8:55 AM SEISMIC ENGINEER Inhaled Oxygen Concentration - - Weight 88.2 kg (194 lb 6.4 oz) 08/22/2023 8:55 A M SEISMIC ENGINEER Height 170.2 cm (5' 7 ) 08/22/2023 8:55 AM SEISMIC ENGINEER Body Mass Index 30.45 08/22/2023 8:55 AM SEISMIC ENGINEER Plan of Treatment Upcoming Encounters Date Type Department Care Team (Late st Contact Info) Description 11/26/2024 2:00 PM CDT Procedure visit [facility] - [address] [phone] 11/26/2024 2:30 PM CDT Office Visit [facility] - GI [address] [place] [phone] Kevin Schuster MD [address] [place] [address] [place] [address] Goals Goal Patient Goal Type Associated Problems Recent Progress Patient-Stated? Author Medication Management General On track( 023 10:10 AM SEISMIC ENGINEER) Pao Machado, RN Note: Expected end date: Ongoing Interventions: Take all medications as prescribed Let your doctor know right away about any changes in your medications Make sure to request a refill of your medication at least one week prior to your last dose Procedures Procedure Name Priority Date/Time Associated Diagnosis Comments COMPREHENSIVE METABOLIC PANEL Routine 08/22/2023 8:51 AM [facility] NAFLD (nonalcoholic fatty liver disease) Primary biliary cholangitis (HCC) HEPATITIS C ANTIBODY Timed 02/27/2014 1:14 PM CDT from Last 3 Months or Most Recently Relevant to Health Maintenance Results * COMPREHENSIVE METABOLIC PANEL (08/22/2023 8:51 AM [facility]) BUN 14 7 - 26 mg/dL 08/22/2023 9:42 AM [facility] Creatinine 0.76 0.56 - 0.96 mg/dL 08/22/2023 9:42 AM [facility] Sodium 140 136 - 145 mmol/L 08/22/2023 9:42 AM [facility] Potassium 4.1 3.5 - 4.5 mmol/L 08/22/2023 9:42 AM [facility] Chloride 102 98 - 107 mmol/L 08/22/2023 9:42 AM [facility] CO2 27 22 - 29 mmol/L 08/22/2023 9:42 AM [facility] Glucose 82 70 - 115 mg/dL 08/22/2023 9:42 AM [facility] Calcium 9.7 8.4 - 10.2 mg/dL 08/22/2023 9:42 AM [facility] Protein Total 6.9 6.0 - 8.3 g/dL 08/22/2023 9:42 AM [facility] Albumin 4.2 3.4 - 5.0 g/dL 08/22/2023 9:42 AM [facility] Bilirubin Total 0.8 0.2 - 1.2 mg/dL 08/22/2023 9:42 AM [facility] Alkaline Phosphatase 102 40 - 150 U/L 08/22/2023 9:42 AM [facility] ALT 15 5 - 55 U/L 08/22/2023 9:42 AM [facility] AST 16 5 - 34 U/L 08/22/2023 9:42 AM [facility] Anion Gap 11 6 - 16 08/22/2023 9:42 AM [facility] BUN/Creatinine Ratio 18 7 - 23 08/22/2023 9:42 AM [facility] Osmolality Calculated 290 275 - 295 mOsm/kg 08/22/2023 9:42 AM [facility] Albumin/Globulin Ratio 1.6 1.1 - 2.3 08/22/2023 9:42 AM [facility] eGFR by CKD-EPI >90 >=90 mL/min/1.7 3 m2 08/22/2023 9:42 AM [facility] Blood BLOOD SPECIMEN / Unknown Lab Venipuncture / Unknown 08/22/2023 8:51 AM [facility] 08/22/2023 9:05 AM [facility] Kevin Schuster MD LAB - CHEMISTR Y ORDERABLES [facility] [address] [place] [address], [facility] [phone] * HEPATITIS C ANTIBODY (02/27/2014 1:14 PM CDT) [facility] Hepatitis C Antibody Non-react [facility] Comment: Hepatitis C Antibody screen indicates no [...] Mcknight MD LAB - CHEMISTRY GARY DENNIS [facility] [address] [place] [address], [facility] [phone] from Last 3 Months or Most Recently Relevant to Health Maintenance Care Teams Health And Safety Representative Relationship Specialty Start Date End Date Liya Burdick PA [address] [place] [phone] PCP - General Physician Hotel Or Motel Cleaning Supervisor 08/22/23
--- NOTE | 2024-09-26 08:02 | P.PNAN_ITS ---
Anes - Initial Pre Proc Eval Procedure: Operation Date: 09/26/24 09:00 Proposed Procedures p Screening Colonoscopy - Bernabe Cordova MD Date/Time: 09/26/24 08:02 Surgeon: Bernabe Cordova MD Pre Op Diagnosis: screening colonoscopy Patient Data Age: 54 Gender: F Height: 1.7 m Weight: 88.36 kg Allergies Allergy/AdvReac Type Severity Reaction Status Date / Time lisinopril AdvReac Severe Rash Verified 09/26/24 08:01 meloxicam (From Mobic) AdvReac Severe elevated Verified 09/26/24 08:01 liver enzymes Home Medications ?Medication ?Instructions ?Recorded ?Confirmed ?Type casanthranol-docusate sodium 30 1 cap PO BID 06/17/22 09/09/24 History mg-100 mg capsule cholecalciferol (vitamin D3) 50 50 mcg PO DAILY 06/17/22 09/09/24 History mcg (2,000 unit) capsule cyanocobalamin (vitamin B-12) 1,000 mcg PO DAILY 06/17/22 09/09/24 History 1,000 mcg capsule diphenhydramine HCl 50 mg capsule 50 mg PO QHS PRN sleep 06/17/22 09/09/24 History ([employer] SleepGels) loratadine 10 mg tablet (Claritin) 10 mg PO DAILY 06/17/22 09/09/24 History multivitamin 1 tablet PO DAILY 06/17/22 09/09/24 History omega-3 fatty acids 1,250 mg 1,250 mg PO DAILY 06/17/22 09/09/24 History capsule ursodiol 500 mg tablet 500 mg PO BID 12/15/22 09/09/24 History nebivolol 5 mg tablet (Bystolic) 5 mg PO DAILY #90 tabs 05/14/24 09/09/24 Rx rosuvastatin 5 mg tablet 5 mg PO DAILY #90 tabs 05/14/24 09/09/24 Rx alprazolam 0.5 mg tablet (Xanax) 0.5 - 0.75 mg (1 - 1.5 x 0.5 mg) 05/16/24 09/09/24 Rx PO BID PRN anxiety #210 tabs clonazepam 0.5 mg tablet 0.5 mg PO BID #180 tabs 05/16/24 09/09/24 Rx ondansetron 4 mg disintegrating 4 - 8 mg PO Q4-6H PRN nausea and 05/16/24 09/09/24 History tablet vomiting tramadol 50 mg tablet See Rx Instructions PO Q6H PRN 05/16/24 09/09/24 Rx pain #60 tabs bupropion HCl 150 mg tablet,12 hr 150 mg PO BID #180 tabs 05/23/24 09/09/24 Rx sustained-release (Wellbutrin SR) sodium,potassium,mag sulfates 17.5 See Rx Instructions PO .COMPLEX 06/24/24 09/09/24 Rx gram-3.13 gram-1.6 gram oral soln #354 mL (Suprep Bowel Prep Kit) Patient hx anesthesia problems: none Family hx anesthesia problems: none Results Review: All pre-operative results and documents have been reviewed as part of the pre- operative evaluation. [facility] Past Medical History Medical History Hypertension Dyslipidemia NAFLD (nonalcoholic fatty liver disease) Primary biliary cholangitis Joint pain Anxiety Surgical History Surgical History History of bladder repair surgery 2017 History of reconstructive repair of rectocele 2017 History of inguinal hernia repair left 2016 History of tonsillectomy and adenoidectomy 1975 History of tubal ligation 1996 History of hysterectomy 2000 Social History Social History Social History: 05/09/24 very confident with medical forms Smoking status: Never smoker Second hand tobacco smoke exposure: No Alcohol intake: never Substance use: never Substance use type: does not use Do You Feel Safe in your Home?: Yes Lack of Transportation: YES Lack of Food: Never True Current Housing: I Have Housing Concerned About Future Housing: No Difficulty Paying Gas/Electric Bills: No Difficulty Paying for Meds: No Currently Unemployed: Decline to Answer Education: Associate Degree Difficulty w/ Childcare or Family Care: No Living arrangements: with family Occupation/Education: occupation Gender identity (if verbalized by the patient): Female Sexual Orientation (if Verbalized by the Patient): Straight or Heterosexual Spiritual care concerns: No Anes - Eval Final PreProcedure Day of Procedure 09/26/24 08:02 Patient weight: obese Heart: regular rate and rhythm Lungs: clear to auscultation Airway: Mallampati scale class II Neurological: alert and oriented Last oral intake: >/= 8 hours ASA classification: II Emergent: no Anesthetic plan: proceed Anesthesia type and monitoring: general GIVS and standard monitoring Results Review: All pre-operative results and documents have been reviewed as part of the pre- operative evaluation. Informed Consent: The patient's anesthetic plan and its attendant risks and benefits were discussed with the patient/family/POA. Questions were solicited and answers provided to the satisfaction of the patient/family/POA.
[2024-09-26 08:04] VITALS: BP 133/66; PULSE 60; RESP 16; TEMP 35.6; O2SAT 99
[2024-09-26] MEDS: LACTATED RINGERS 1,000 ML 150 ML IV CONT (08:11)
--- NOTE | 2024-09-26 09:04 | PM.HPGS ---
History of Present Illness History of Present Illness Consent: Risks, benefits, and alternatives have been discussed and questions answered. Patient agrees to proceed with procedure. Chief complaint: screening colonoscopy Narrative: Citlaly Crenshaw is a 54 year old female here for first screening colonoscopy Review of Systems Review of Systems: All systems reviewed & are unremarkable except as noted in HPI and below PMFSH Past Medical History Medical History (Updated 09/26/24 @ 09:05 by Bernabe Cordova MD) Colon cancer screening Hypertension Dyslipidemia NAFLD (nonalcoholic fatty liver disease) Primary biliary cholangitis Joint pain Anxiety Surgical History Surgical History History of bladder repair surgery 2017 History of reconstructive repair of rectocele 2017 History of inguinal hernia repair left 2016 History of tonsillectomy and adenoidectomy 1975 History of tubal ligation 1995 History of hysterectomy 2000 Social History Social History Social History: 05/09/24 very confident with medical forms Smoking status: Never smoker Second hand tobacco smoke exposure: No Alcohol intake: never Substance use: never Substance use type: does not use Do You Feel Safe in your Home?: Yes Lack of Transportation: YES Lack of Food: Never True Current Housing: I Have Housing Concerned About Future Housing: No Difficulty Paying Gas/Electric Bills: No Difficulty Paying for Meds: No Currently Unemployed: Decline to Answer Education: Associate Degree Difficulty w/ Childcare or Family Care: No Living arrangements: with family Occupation/Education: occupation Gender identity (if verbalized by the patient): Female Sexual Orientation (if Verbalized by the Patient): Straight or Heterosexual Spiritual care concerns: No Meds Home Medications and Allergies Home Medications ?Medication ?Instructions ?Recorded ?Confirmed ?Type casanthranol-docusate sodium 30 1 cap PO BID 06/17/22 09/26/24 History mg-100 mg capsule cholecalciferol (vitamin D3) 50 50 mcg PO DAILY 06/17/22 09/26/24 History mcg (2,000 unit) capsule cyanocobalamin (vitamin B-12) 1,000 mcg PO DAILY 06/17/22 09/26/24 History 1,000 mcg capsule diphenhydramine HCl 50 mg capsule 50 mg PO QHS PRN sleep 06/17/22 09/09/24 History ([employer]) loratadine 10 mg tablet (Claritin) 10 mg PO DAILY 06/17/22 09/09/24 History multivitamin 1 tablet PO DAILY 06/17/22 09/26/24 History omega-3 fatty acids 1,250 mg 1,250 mg PO DAILY 06/17/22 09/26/24 History capsule ursodiol 500 mg tablet 500 mg PO BID 12/15/22 09/26/24 History nebivolol 5 mg tablet (Bystolic) 5 mg PO DAILY #90 tabs 05/14/24 09/26/24 Rx rosuvastatin 5 mg tablet 5 mg PO DAILY #90 tabs 05/14/24 09/26/24 Rx alprazolam 0.5 mg tablet (Xanax) 0.5 - 0.75 mg (1 - 1.5 x 0.5 mg) 05/16/24 09/09/24 Rx PO BID PRN anxiety #210 tabs clonazepam 0.5 mg tablet 0.5 mg PO BID #180 tabs 05/16/24 09/26/24 Rx ondansetron 4 mg disintegrating 4 - 8 mg PO Q4-6H PRN nausea and 05/16/24 09/09/24 History tablet vomiting tramadol 50 mg tablet See Rx Instructions PO Q6H PRN 05/16/24 09/09/24 Rx pain #60 tabs bupropion HCl 150 mg tablet,12 hr 150 mg PO BID #180 tabs 05/23/24 09/26/24 Rx sustained-release (Wellbutrin SR) sodium,potassium,mag sulfates 17.5 See Rx Instructions PO .COMPLEX 06/24/24 09/26/24 Rx gram-3.13 gram-1.6 gram oral soln #354 mL (Suprep Bowel Prep Kit) Allergies Allergy/AdvReac Type Severity Reaction Status Date / Time lisinopril AdvReac Severe Rash Verified 09/26/24 08:01 meloxicam (From Mobic) AdvReac Severe elevated Verified 09/26/24 08:01 liver enzymes Vital Signs Vital Signs - 24 hr 09/26/24 08:04 Temperature 96.0 F L Pulse Rate 60 Respiratory Rate 16 Blood Pressure 133/66 Pulse Oximetry 99 Oxygen Delivery Room Air Exam Const: General: comfortable and no acute distress HENMT: Face/Nose/Sinus: Normal nares present Eyes: General: appearance normal, both eyes and all related structures Neck: Neck: no JVD Resp: Auscultation: clear to auscultation bilaterally Cardio: Rate: regular rate Rhythm: regular rhythm GI: Inspection: non-distended GI Palp: Yes Soft to palpation Skin: General skin exam: normal color Neuro: General: gait normal Speech: normal speech Extrem: General: normal to inspection Psych: Mental Status: mental status grossly normal Assessment and Plan Assessment and plan (1) Colon cancer screening: Code(s): Z12.11 - Encounter for screening for malignant neoplasm of colon Status: Acute Assessment and Plan: colonoscopy
[2024-09-26 09:30] VITALS: BP 130/68; PULSE 67; RESP 16; O2SAT 95
[2024-09-26 09:40] VITALS: BP 122/75; PULSE 65; RESP 16; O2SAT 96
[2024-09-26 09:50] VITALS: BP 122/75; PULSE 63; RESP 16; O2SAT 100
== END 2024-09-26 10:03 | disposition home or self-care (01) ==
PROVIDERS: PCP Physician Assistant Medical; Visit Provider Internal Medicine Gastroenterology
PROC: 0DJD8ZZ Inspection of Lower Intestinal Tract, Via Natural or Artificial Opening Endoscopic (ICD-10-PCS; CPT 45378; principal; 2024-09-26 09:00)
DX: Z12.11 Encounter for screening for malignant neoplasm of colon (principal); K64.8 Other hemorrhoids; K57.30 Diverticulosis of large intestine without perforation or abscess without bleeding; I10 Essential (primary) hypertension; E78.5 Hyperlipidemia, unspecified; F41.9 Anxiety disorder, unspecified; K74.3 Primary biliary cirrhosis; E66.9 Obesity, unspecified; Z68.33 Body mass index [BMI] 33.0-33.9, adult; Z79.891 Long term (current) use of opiate analgesic; Z98.890 Other specified postprocedural states; Z98.51 Tubal ligation status
CPT/HCPCS: 45378; J2003; J2704; J7120